=== PATIENT | female | born 1995 | race Hispanic/Latino ===

== ENCOUNTER → 2020-03-06 14:10 | Outpatient (CLI) | payer OTHER, MEDICAID, SELFPAY ==
--- NOTE | 2020-03-06 14:12 | DI.US.S_ITS ---
PROCEDURE: US OB <= 14 WEEKS FETUS INDICATIONS: Dating and Viability US OUTSIDE/PRIOR DATING DATA: Last menstrual period (LMP): 12/20/19. LMP-based estimated date of delivery (FRANCOISE): 09/25/20. First dating scan (date and location): 03/06/20. Estimated date of delivery (FRANCOISE) from first dating scan: 09/24/20. TECHNIQUE: Real-time scanning was performed of the fetus and maternal pelvic organs, with image documentation. Endovaginal scanning was also performed to better visualize the fetus and maternal ovaries. COMPARISON: None. FINDINGS: Embryo: There is a single intrauterine with a gestational sac, yolk sac, and pole visualized. The crown-rump length measures approximately 4.3 cm corresponding to a gestational age of 11 weeks 1 day. heart motion is identified with a rate of 133 beats per minute. No perigestational hematomas identified. Measurement variability in dating: +/- 4 weeks by LMP, +/- 7 days by mean sac diameter (use before 6 weeks gestation if crown-rump length not able to be measured), +/- 5 days by crown-rump length (up to 8 weeks 6 days gestation), +/- 7 days by crown-rump length (up to 13 weeks 6 days gestation). Maternal organs: Ovaries measure 2.4 x 2.9 x 1.7 cm on the right and 2.7 x 3.6 x 1.7 cm on the left. No adnexal masses. The cervix measures up to 1.6 cm in length and appears closed. Limited images through the kidneys demonstrate no hydronephrosis. IMPRESSION: 1. Single living intrauterine with a calculated gestational age of 11 weeks 1 day corresponding to an estimated delivery date of 09/24/20, concordant with patient's dates by LMP. Dictated by: Joshua Ngo M.D. on 03/06/2020 at 15:23 Approved by: Joshua Ngo M.D. on 03/06/2020 at 15:28
== END ==
PROVIDERS: PCP Family Medicine; Referring Provider Family Medicine; Visit Provider Family Medicine
DX: Z34.81 Encounter for supervision of other normal pregnancy, first trimester (principal); Z3A.11 11 weeks gestation of pregnancy
CPT/HCPCS: 76801

== ENCOUNTER → 2020-03-16 15:25 | Outpatient (CLI) | payer OTHER, MEDICAID, SELFPAY ==
[2020-03-16 16:05] LABS: Add Manual Diff / Slide Review NO; Basophils Absolute Auto 0 /uL (0-100); Basophils Percent Auto 0.3 % (0-2); Eosinophils Absolute Auto 100 /uL (0-450); Eosinophils Percent Auto 0.8 % (2-4); Hematocrit 37.2 % (36-46); Hemoglobin 12.8 g/dL (12.0-16.0); Lymphocytes Absolute Auto 1700 /uL (1100-4500); Mean Corpuscular HGB Conc 34.3 % (30-36); Mean Corpuscular Hemoglobin 29.7 PG (26-34); Mean Corpuscular Volume 86.4 fL (80-100); Monocytes Absolute Auto 500 /uL (0-900); Neutrophils Absolute Auto 6800 /uL (1500-7000); Neutrophils Percent Auto 74.9 % (50-75); Platelet Count 254 X10^3/uL (150-400); Red Blood Cell Count 4.31 X10^6/uL (4.0-5.2); Red Cell Distribution Width 13.9 % (11.6-14.8); White Blood Cell Count 9.1 X10^3/uL (4.5-11.0)
[2020-03-16 16:07] LABS: Appearance Urine UA CLEAR; Bilirubin Urine UA NEGATIVE (NEGATIVE); Color Urine UA YELLOW; Glucose Urine UA NEGATIVE (Negative); Ketones Urine UA TRACE (NEGATIVE); Leukocyte Esterase Urine UA NEGATIVE (NEGATIVE); Nitrite Urine UA NEGATIVE (Negative); Occult Blood Urine UA NEGATIVE (Negative); Protein Urine UA NEGATIVE (Negative)
[2020-03-16 17:05] LABS: Hepatitis B Surface Antigen NEGATIVE s/c (NEGATIVE)
[2020-03-16 17:16] LABS: HIV 1 & 2 Ab/Ag 4th Gen Combo NEGATIVE (NEGATIVE); Hep C Virus Ab w/Reflex Quant NEGATIVE s/c (NEGATIVE)
[2020-03-17 02:09] LABS: RPR Screen Non Reactive (Non Reactive)
[2020-03-17 05:12] LABS: Varicella IgG Antibody 907 index (Immune >165)
== END ==
PROVIDERS: PCP Family Medicine; Referring Provider Family Medicine; Visit Provider Family Medicine
DX: Z34.91 Encounter for supervision of normal pregnancy, unspecified, first trimester (principal)
CPT/HCPCS: 36415; 80055; 81003; 86787; 86803; 86850; 86900; 86901; 87086; 87389

== ENCOUNTER → 2020-05-06 13:09 | Outpatient (CLI) | payer OTHER, MEDICAID, SELFPAY ==
--- NOTE | 2020-05-06 13:10 | DI.US.S_ITS ---
PROCEDURE: US OB >= 14 WEEKS FETUS INDICATIONS: ANATOMY OUTSIDE/PRIOR DATING DATA: Last menstrual period (LMP): 12/20/19. . First dating scan (date and location): 03/06/20 . Estimated date of delivery (FRANCOISE) from first dating scan: 09/24/20 . TECHNIQUE: Real-time scanning was performed of the fetus, with image documentation and biometric measurements. Endovaginal scanning: Not needed. COMPARISON: Prior OB ultrasound for this .. FINDINGS: General: A single living intrauterine gestation is present. Presentation: Breech. Placenta: Placental position is posterior, without previa. Amniotic fluid index: 13.4 cm, normal range is 5-24 cm. heart rate: 150 beats per minute. Maternal cervical canal: 4.4 cm long. Normal lower limit is 2.5 cm. biometrics: Biparietal diameter: 4.4 cm, 19 weeks 3 days Head circumference: 17.1 cm, 19 weeks 5 days Abdominal circumference: 14.7 cm, 20 weeks 0 days Femur length: 3.0 cm, 19 weeks 2 days Estimated gestational age from initial scan: 19 weeks 6 days Composite gestational age from present scan: 19 weeks 4 days Estimated weight and percentile: 308 g, 37th percentile Measurement variability for biometric dating: +/- 7 days from 14 weeks to 15 weeks 6 days gestation, +/- 10 days from 16 weeks to 21 weeks 6 days gestation, +/- 2 weeks from 22 weeks to 27 weeks 6 days gestation, +/- 3 weeks for 28 weeks gestation or later. weight reference: 4500 g or EFW >90/95% is considered macrosomia or large for gestational age. EFW <10% is small for gestational age. EFW 5% or less is considered intra-uterine growth restriction. Anatomic survey: Neuro: Ventricles are non-dilated at less than 10 mm. Cisterna magna is normal at 3-11 mm. Cerebellum is normal in size and morphology. Nuchal skin fold: Normal at less than 6 mm between 14-21 weeks gestational age. Face: Nose and lips, facial profile are normal. Spine: No evidence for spina bifida. Heart: 4-chambered heart is present, with normal ventricular outflow tracts. Diaphragm: Diaphragm is intact. Stomach: Left-sided stomach is present. Kidneys: No hydronephrosis. Normal is less than 5 mm in 2nd trimester, less than 7 mm in 3rd trimester. Cord: 3-vessel cord has orthotopic insertion. Bladder: Normal in size. Extremities: All 4 extremities identified. IMPRESSION: Appropriate interval growth, no anomaly seen. The delivery date is projected to be centered on 09/24/20. Dictated by: Bradley Mckeon M.D. on 05/06/2020 at 16:39 Approved by: Bradley Mckeon M.D. on 05/06/2020 at 16:42
== END ==
PROVIDERS: PCP Family Medicine; Referring Provider Family Medicine; Visit Provider Family Medicine
DX: Z36.89 Encounter for other specified antenatal screening (principal); Z3A.19 19 weeks gestation of pregnancy
CPT/HCPCS: 76811

== ENCOUNTER → 2020-05-28 19:07 | Outpatient (ROUT) | payer OTHER, MEDICAID, SELFPAY ==
[2020-05-28 19:36] LABS: Appearance Urine UA SL CLOUDY; Bilirubin Urine UA NEGATIVE (NEGATIVE); Color Urine UA YELLOW; Glucose Urine UA NEGATIVE (Negative); Ketones Urine UA NEGATIVE (NEGATIVE); Leukocyte Esterase Urine UA NEGATIVE (NEGATIVE); Nitrite Urine UA NEGATIVE (Negative); Occult Blood Urine UA 2+ (Negative); Protein Urine UA NEGATIVE (Negative); Specific Gravity Urine UA 1.015 (1.000-1.035); Urobilinogen Urine UA 0.2 E.U./dL (0.2)
[2020-05-28 19:53] LABS: Amorphous Sediment Urine 1+; Bacteria Urine Moderate (10-30); Culture Indicated Urine Specimen Cultured; Mucus Urine 1+ (Negative); RBC Urine 5-10/HPF (0-5/HPF); Squamous Epithelial Cell Urine 5-10 /HPF (0-5/HPF); WBC Urine 1-5/HPF (0-5/HPF)
== END ==
PROVIDERS: PCP Family Medicine; Visit Provider Family Medicine
DX: R31.9 Hematuria, unspecified (principal); Z3A.22 22 weeks gestation of pregnancy
CPT/HCPCS: 81001; 87086

== ENCOUNTER → 2020-07-02 12:27 | Outpatient (CLI) | payer OTHER, MEDICAID, SELFPAY ==
[2020-07-02 14:23] LABS: Hematocrit 29.3 % (36-46); Hemoglobin 9.8 g/dL (12.0-16.0)
[2020-07-02 15:51] LABS: GTT (PREG) 1 Hour PP 50gm Dose 148 mg/dL (76-139)
== END ==
PROVIDERS: PCP Family Medicine; Referring Provider Family Medicine; Visit Provider Family Medicine
DX: Z34.90 Encounter for supervision of normal pregnancy, unspecified, unspecified trimester (principal); Z3A.26 26 weeks gestation of pregnancy
CPT/HCPCS: 36415; 82950; 85014; 85018

== ENCOUNTER → 2020-07-16 09:58 | Outpatient (CLI) | payer OTHER, MEDICAID, SELFPAY ==
[2020-07-16 11:19] LABS: Glucose Fasting Gestational 84 mg/dL (76-95)
[2020-07-16 13:15] LABS: Glucose 1 Hour Gest 149 mg/dL (76-180)
[2020-07-16 13:23] LABS: Glucose 2 Hour Gest 123 mg/dL (76-155)
[2020-07-16 13:41] LABS: Glucose Tol Interp,Gestational INTERPRETATION
[2020-07-16 13:48] LABS: Add Manual Diff / Slide Review NO; Basophils Absolute Auto 0 /uL (0-100); Basophils Percent Auto 0.2 % (0-2); Eosinophils Absolute Auto 100 /uL (0-450); Hematocrit 28.1 % (36-46); Hemoglobin 9.2 g/dL (12.0-16.0); Lymphocytes Absolute Auto 1800 /uL (1100-4500); Lymphocytes Percent Auto 22.2 % (25-40); Mean Corpuscular Hemoglobin 27.2 PG (26-34); Mean Corpuscular Volume 82.5 fL (80-100); Monocytes Absolute Auto 500 /uL (0-900); Monocytes Percent Auto 5.6 % (3-14); Neutrophils Absolute Auto 5900 /uL (1500-7000); Platelet Count 269 X10^3/uL (150-400); Red Cell Distribution Width 14.3 % (11.6-14.8); White Blood Cell Count 8.3 X10^3/uL (4.5-11.0)
[2020-07-16 14:04] LABS: HEMOLYSIS < 15 (0-50); Iron 48 ug/dL (37-170)
[2020-07-16 14:06] LABS: Glucose 3 Hour Gest 118 mg/dL (76-140)
[2020-07-16 14:19] LABS: Percent Iron Saturation 10 % (15-50); Total Iron Binding Capacity 495 ug/dL (265-497); Transferrin 411 mg/dL (206-381)
[2020-07-16 14:40] LABS: Ferritin 6 ng/mL (6-137)
== END ==
PROVIDERS: PCP Family Medicine; Referring Provider Family Medicine; Visit Provider Family Medicine
DX: O99.810 Abnormal glucose complicating pregnancy (principal); D64.9 Anemia, unspecified
CPT/HCPCS: 36415; 82728; 82951; 82952; 83540; 83550; 85025

== ENCOUNTER → 2020-09-01 10:43 | Outpatient (CLI) | payer OTHER, MEDICAID, SELFPAY ==
[2020-09-02 09:10] LABS: Strep Grp B PCR NEG for Grp B Strep
== END ==
PROVIDERS: PCP Family Medicine; Visit Provider Family Medicine
DX: Z34.90 Encounter for supervision of normal pregnancy, unspecified, unspecified trimester (principal); Z3A.36 36 weeks gestation of pregnancy
CPT/HCPCS: 87653

== ENCOUNTER 2020-09-26 20:17 | Inpatient (IN) | payer OTHER, MEDICAID, SELFPAY ==
[2020-09-26 21:40] LABS: Add Manual Diff / Slide Review NO; Basophils Absolute Auto 100 /uL (0-100); Basophils Percent Auto 0.5 % (0-2); Eosinophils Absolute Auto 0 /uL (0-450); Eosinophils Percent Auto 0.2 % (2-4); Hematocrit 30.6 % (36-46); Hemoglobin 9.6 g/dL (12.0-16.0); Lymphocytes Absolute Auto 1900 /uL (1100-4500); Lymphocytes Percent Auto 17.8 % (25-40); Mean Corpuscular HGB Conc 31.4 % (30-36); Mean Corpuscular Hemoglobin 23.3 PG (26-34); Mean Corpuscular Volume 74.3 fL (80-100); Monocytes Absolute Auto 500 /uL (0-900); Monocytes Percent Auto 4.8 % (3-14); Neutrophils Absolute Auto 8100 /uL (1500-7000); Neutrophils Percent Auto 76.7 % (50-75); Platelet Count 283 X10^3/uL (150-400); Red Blood Cell Count 4.12 X10^6/uL (4.0-5.2); Red Cell Distribution Width 17.3 % (11.6-14.8); White Blood Cell Count 10.6 X10^3/uL (4.5-11.0)
[2020-09-26 21:42] VITALS: BP 131/79
[2020-09-26] MEDS: LACTATED RINGERS 1,000 ML 100 ML IV (22:30)
--- NOTE | 2020-09-27 02:25 | P.HPOB_ITS ---
OB HPI Date/Time Date of admission: 09/26/20 Date Patient Seen: 09/27/20 Time Patient Seen: 02:26 History of Present Condition Chief complaint: EVAL OF LABOR : 2 Para: 1 Estimated Date of Delivery: 09/24/20 Estimated Gestational Age (weeks): 40w3d Narrative: Clarisa Bucio is a 25 year old at 40 weeks and 3 days gestation who presented in active labor. uncomplicated with good care. H/o 1 prior vaginal delivery 7 years ago. History of Present care: good care, initiated at week # (12), number of visits (14) and pounds weight gain (6) Dating criteria: LMP confirmed by 1st trimester US Ultrasounds: normal mid trimester US Obstetrical complications: none Medical complications: none Preadmission Labs Blood type: A (+) positive -: Antibody screen: negative, GBS status: negative, HBsAG: negative, HIV: negative and RPR/VDLR: negative -: Chlamydia screen: not detected and Gonorrhea screen: not detected -: Rubella: immune and Varicella: immune HCT: 30.6 HCAB: negative PAP: Normal Urine: Negative 1 hr GTT: 148 3 hr GTT: 1 hr (149), 2 hr (123) and 3 hr (118) Fasting blood glucose: 84 Prior (ies) History: 09/07/13 41 weeks, 7#11oz male, induction for postdates, breast fed 12 months Evaluation Evaluation Baseline heart rate: 130 Variability: Moderate (11-25) monitor accelerations: Present monitor decelerations: Absent Contraction Frequency (minutes): 3 Status: Category l Cervical dilation (cm): 7 Cervical effacement (%): 100 station: 0 Laboratory results: Laboratory Tests 09/26/20 09/26/20 20:46 20:46 WBC 10.6 RBC 4.12 Hgb 9.6 L Hct 30.6 L MCV 74.3 L MCH 23.3 L MCHC 31.4 RDW 17.3 H Plt Count 283 Neut % (Auto) 76.7 H Lymph % (Auto) 17.8 L Churchill % (Auto) 4.8 Eos % (Auto) 0.2 L Baso % (Auto) 0.5 Neut # (Auto) 8100 H Lymph # (Auto) 1900 Churchill # (Auto) 500 Eos # (Auto) 0 Baso # (Auto) 100 Blood Type A Positive Antibody Screen Negative [facility] Medical History (spontaneous vaginal delivery) Family History Mother No problems noted. Father No problems noted. Grandfather Murder Grandmother No problems noted. Grandfather No problems noted. Grandmother No problems noted. Social History marital status: unmarried,single number of children: 1 pets and animals: No occupational status: unemployed special nena needs: No Smoking Status: Never smoker second hand exposure: No alcohol intake: never substance use type: does not use Meds Home Medications and Allergies Home Medications Medication Instructions Recorded Confirmed Type ferrous gluconate 324 mg (37.5 mg 324 mg PO DAILY #90 tab 07/16/20 07/16/20 Rx iron) tablet prenat.vits,gus,yno-nhuh-jtcru 1 tab PO DAILY #90 tab 07/16/20 07/16/20 Rx Double Electric Breast Pump and #1 ea 09/10/20 Rx supplies Allergies Allergy/AdvReac Type Severity Reaction Status Date / Time No Known Drug Allergies Allergy Verified 06/12/20 13:46 Review of Systems Review of Systems ROS: Yes All systems reviewed with the patient and are negative except as otherwise documented Exam Vital Signs (past 8 hours): - 09/26/20 21:42 Blood Pressure 131/79 T 36.8 BP 113/60 HR 77 Const General: healthy appearing and comfortable [facility] Head: normal to inspection Ears: hearing grossly normal bilaterally Nose: external nose normal Face and sinus: normal facial exam Mouth: oral mucosae normal Eyes General: appearance normal, both eyes and all related structures Neck Neck: normal visual inspection Resp Effort & Inspection: normal respiratory effort Auscultation: clear to auscultation bilaterally Cardio Rate: regular rate Rhythm: regular rhythm Heart Sounds: no murmurs GI Other: Gravid External Female Exam: normal external appearance Manual OB Exam: dilated 7, effaced fully and station 0 Presentation: vertex Estimated Weight (lbs): 7 Back/Spine/Pelvis Back: normal to inspection Skin General: no rashes or lesions noted Extrem General: normal to inspection and no pedal edema Objective Labs Result Diagrams: 09/26/20 20:46 Labs: Laboratory Results - last 24 hr 09/26/20 09/26/20 20:46 20:46 WBC 10.6 RBC 4.12 Hgb 9.6 L Hct 30.6 L MCV 74.3 L MCH 23.3 L MCHC 31.4 RDW 17.3 H Plt Count 283 Neut % (Auto) 76.7 H Lymph % (Auto) 17.8 L Churchill % (Auto) 4.8 Eos % (Auto) 0.2 L Baso % (Auto) 0.5 Neut # (Auto) 8100 H Lymph # (Auto) 1900 Churchill # (Auto) 500 Eos # (Auto) 0 Baso # (Auto) 100 Blood Type A Positive Antibody Screen Negative Assessment and Plan Assessment and Plan Assessment and Plan narrative: 25 year old at 40 weeks and 3 days gestation in active labor, now comfortable with epidural. GBS negative. COVID pending. Expectant management, anticipate vaginal delivery.
--- NOTE | 2020-09-27 03:22 | PM.OBPNLAB ---
Date/Time Date Patient Seen: 09/27/20 Time Patient Seen: 03:22 Pain Control Pain control: tolerating well and epidural Pelvic Exam Dilation (cm): 8 Effacement (%): 100 station: -1 Amniotic membrane status: Ruptured (AROM thin meconium) Contractions Contraction frequency (min): 3 Contraction pattern: Regular Status status: Category l Heart Rate Baseline: 140 Monitor Accelerations: Present Monitor Decelerations: Absent Monitor Variability: Moderate Assessment and Plan Assessment: active labor Plan: continuous present management
[2020-09-27 03:32] LABS: COVID19 -Nasal RAPID Negative (Negative)
[2020-09-27] MEDS: OXYTOCIN PREMIX 30 UNIT/500 ML PLAST..BAG IV (05:05)
[2020-09-27] MEDS: FENT 2MCG/ML BUPIV 0.125% EPI 200 MCG/100 ML PLAST..BAG 20 MCG EPIDURAL (05:35)
[2020-09-27] MEDS: LACTATED RINGERS 1,000 ML 100 ML IV ×2 (06:46→09:52)
--- NOTE | 2020-09-27 07:32 | PM.OBPNLAB ---
Date/Time Date Patient Seen: 09/27/20 Time Patient Seen: 07:32 Pain Control Pain control: tolerating well and epidural Comments: Feeling some rectal pressure that comes and goes. Pelvic Exam Dilation (cm): 10 Effacement (%): 100 station: 0 Amniotic membrane status: Ruptured (AROM thin meconium) Contractions Monitor mode: External Pitocin rate (mU/min): 3 Contraction frequency (min): 3 Contraction pattern: Regular Status status: Category l Heart Rate Baseline: 145 Monitor Accelerations: Present Monitor Decelerations: Variable (one) Monitor Variability: Moderate Assessment and Plan Assessment: active labor Plan: continuous present management Comments: Will labor down for 30 minutes to allow urge to push to build further.
[2020-09-27] MEDS: miSOPROStoL 200 MCG TABLET 800 MCG PR (10:55)
--- NOTE | 2020-09-27 11:08 | PM.OBPRVD ---
Labor & Delivery Delivery date: 09/27/20 Delivery augmentation: rupture of membranes and pitocin Delivery monitor: external FHT Route of delivery: L&D Laceration Description: None Estimated blood loss (mL): 600 Anesthesia Type: Epidural Narrative: BRIEF HISTORY: Patient is a 25-year-old at 40 weeks and 3 days who gave on 09/27/20 at 10:36 a.m.. FRANCOISE: 09/24/20 Hospital problems: 40 weeks of STAGE I: Labor Patient presented in active labor and received an epidural shortly thereafter with excellent pain control. The first stage of labor progressed slowly over 13-1/2 hours. Artificial rupture of membranes occurred at 3:34 a.m. with production of thin meconium stained fluid. Pitocin was started due to slow cervical change. She was complete at 7:30 a.m. and labored down for approximately 30 minutes prior to pushing. heart tones were category 1 throughout stage I. STAGE II: Delivery Spontaneous vaginal delivery occurred at 10:36 a.m.. was vertex and MAYE. There was a nuchal cord x1 which was reduced. delivered and was immediately placed on mother's abdomen. Cord was clamped and cut after 1 minute delay. scores were 8 at one minute and 9 at five minutes. No resuscitation of the required. Second stage of labor was 3 hours and 6 minutes. STAGE III: Placenta/Cord Placenta delivered at 10:50 a.m. after active management and appeared intact with a three-vessel cord. The delivery of the placenta several large clots were expressed from the uterus followed by persistent trickling. Pitocin bolus given followed by 800 mcg misoprostol rectally. After massage uterus was firm at the umbilicus. There were no lacerations. EBL: 600 mL. Needle and sponge counts were correct. The vagina was inspected and no items were left in situ. Patient was doing well with her and boyfriend at bedside. [place] Baby 1: Infant gender: Female Presentation: vertex Placenta delivery description: Spontaneous Cord Vessel Description: 3 Vessels and Nuchal Cord (x1, reduced) score (1 min): 8 score (5 min): 9
[2020-09-27] MEDS: LANOLIN OINT 7 GM 1 APPLIC TOP (21:29)
[2020-09-27] MEDS: IBUPROFEN 600 MG TABLET PO (21:30)
[2020-09-28] MEDS: ACETAMINOPHEN 325 MG TABLET 650 MG PO ×2 (03:18→09:41)
[2020-09-28] MEDS: IBUPROFEN 600 MG TABLET PO ×3 (03:19→16:19)
[2020-09-28 07:24] LABS: Hematocrit 25.2 % (36-46); Hemoglobin 7.9 g/dL (12.0-16.0)
--- NOTE | 2020-09-28 08:46 | PM.OBDS.1 ---
Discharge Providers Provider Date of admission: 09/26/20 20:17 Discharge Date: 09/28/20 Primary care physician: Hazel Ravi DO Consults: 09/28/20 11:15 Consult to Phosphoric Acid Operator Routine Comment: Discharge provider: Hazel Ravi DO Summary Hospital Course Date Patient Seen: 09/28/20 Time Patient Seen: 08:30 Procedures: Spontaneous vaginal delivery Epidural analgesia Hospital Course: Patient is a 25-year-old now 2 after uncomplicated spontaneous vaginal delivery. She presented in active labor and received an epidural with excellent pain control. First stage of labor was prolonged and augmented with Pitocin and artificial rupture of membranes with thin meconium. Patient progressed to complete and delivered a healthy female infant after 2-1/2 hours of pushing. She did have a temperature of 38? C however this came down without intervention during labor. No diagnosis of chorioamnionitis made. Infant was vigorous after delivery. After delivery of the placenta patient passed numerous clots. She was given Pitocin as well as rectal misoprostol. Uterus massaged to firm with control of bleeding. course uncomplicated. Bleeding was light to moderate. Denied lightheadedness, dizziness or shortness of breath. Patient was ambulating, voiding and passing flatus. Breast-feeding going well without issues in the . Advised patient to call for fevers, severe pain or bleeding through more than a pad an hour. Follow up in six weeks or sooner if needed. Peripartum Data Delivery Method: Natural Vaginal Laceration Description: None complications: none 1: Gender: Female Disposition of : home Discharge Diagnosis (1) Spontaneous vaginal delivery: Status: Acute (2) 40 weeks gestation of : Status: Acute (3) hemorrhage: Status: Acute (4) Acute blood loss anemia: Status: Acute Status at Discharge Functional status at discharge: independent ambulation Overall status at discharge: patient is progressing back to baseline Time Spent with Patient Time attestation: Total time spent providing and/or coordinating discharge services: Time spent: Less than 30 minutes Objective Labs Result Diagrams: 09/28/20 06:40 Labs: Laboratory Results - last 24 hr 09/28/20 06:40 Hgb 7.9 L Hct 25.2 L Exam Vital Signs (past 8 hours): Temperature 98.0? blood pressure 103/63 heart rate 72 respirations 16 Narrative Exam Narrative: General: Awake and alert, no acute distress. HEENT: NCAT, EOMI, moist oral mucosa CV: Regular rate and rhythm, no murmurs, rubs or gallops Lungs: CTAB, no wheezes, rales, or rhonchi Abdomen: Soft, nontender; bowel tones active; uterus firm at umbilicus Extremities: Warm, Trace edema bilaterally Discharge Plan Discharge Plan Patient Disposition: Home Discharge orders & Medications Prescriptions: New docusate sodium [DOK] 100 mg Capsule 100 mg PO DAILY Qty: 30 RF: 0 ibuprofen 600 mg Tablet 600 mg PO Q6HR PRN (Reason: Pain, Mild (1-3)) Qty: 30 RF: 0 Continued prenat.vits,gus,[id number] Tablet 1 tab PO DAILY Qty: 90 RF: 2 ferrous gluconate 324 mg (37.5 mg iron) tablet 324 mg PO DAILY Qty: 90 RF: 0 No Action (DME) Double Electric Breast Pump and supplies See Rx Instructions .ROUTE .MEDSUPPLY Qty: 1 RF: 0 Follow up/Referrals: Hazel Ravi DO [Primary Care Provider] - 6 Weeks Diet/Activity/Treatments Diet: Diet as Tolerated Skin/Wound/Dressing Care Report to your healthcare provider any signs of infection, such as:: chills, fever, night sweats, increased pain, unusual drainage and unusual redness Visit Report/Discharge Packet Visit Report Forms: Patient Portal/API, Stroke Signs & Symptoms Discharge Data Primary Care Provider: Hazel Ravi
[2020-09-28] MEDS: DOCUSATE 100 MG CAPSULE PO (09:40)
[2020-09-28] MEDS: FERROUS SULFATE 325 MG TABLET PO (09:40)
[2020-09-28 15:38] VITALS: BP 110/76; PULSE 78; RESP 18; TEMP 36.6
== END 2020-09-28 16:20 | disposition home or self-care (01) | DRG 560 ==
PROVIDERS: Admitting Provider Family Medicine; PCP Family Medicine; Referring Provider Family Medicine; Visit Provider Family Medicine
DX: O77.0 Labor and delivery complicated by meconium in amniotic fluid (principal); O90.81 Anemia of the puerperium; D62 Acute posthemorrhagic anemia; O48.0 Post-term pregnancy; Z3A.40 40 weeks gestation of pregnancy; Z37.0 Single live birth; O69.81X0 Labor and delivery complicated by cord around neck, without compression, not applicable or unspecified; Z01.812 Encounter for preprocedural laboratory examination; Z20.828 Contact with and (suspected) exposure to other viral communicable diseases
CPT/HCPCS: 01967; 36415; 59050; 59409; 85014; 85018; 85025; 86850; 86900; 86901; 87635; G0379; J2590; S0191